=== PATIENT | female | born 1955 | race Caucasian/White ===

== ENCOUNTER 2022-11-05 11:36 | Emergency (ER) | payer OTHER ==
[~2022-11-05] VITALS: Ht 160 cm; Wt 59.0 kg
[2022-11-05] MEDS ORDERED: IPRATROPIUM BROM 0.5 MG/2.5 ML VIAL.NEB (ATROVENT) INH ONE (11:45)
[2022-11-05] MEDS ORDERED: ALBUTEROL SULFATE 0.083% 2.5 MG/3 ML VIAL.NEB INH ONE (11:45)
[2022-11-05] MEDS ORDERED: predniSONE 20 MG TABLET PO ONE (11:45)
[2022-11-05 11:46] VITALS: BP_SYST 124
[2022-11-05] MEDS ORDERED: PRED20TA PO (13:12)
[2022-11-05 13:23] VITALS: BP_SYST 124
== END 2022-11-05 13:22 | disposition home or self-care (01) ==
LOC: SED 11:36
DX: J44.1 Chronic obstructive pulmonary disease with (acute) exacerbation (principal); R06.02 Shortness of breath; R05.9 Cough, unspecified; Z79.899 Other long term (current) drug therapy; Z20.822 Contact with and (suspected) exposure to COVID-19
CPT/HCPCS: 36415; 71045; 94640; 99284; 87804 ×2; 87426; J7512; J7613

== ENCOUNTER 2023-02-16 20:03 | Emergency (ER) | payer OTHER ==
[~2023-02-16] VITALS: Ht 160 cm; Wt 59.4 kg
[~2023-02-16 20:03] MED LIST: PRED20TA PO
[2023-02-16 20:12] VITALS: BP_SYST 137
--- NOTE | 2023-02-16 20:26 | NUR ---
PATIENT PRESENTS WITH ASTHMA ATTACK, OXYGEN NOTED AT 93% ON ROOM AIR, MD SEEN PATIENT IN TRIAGE ROOM, PATIENT PLACED IN ED BED 8
--- NOTE | 2023-02-16 20:27 | NUR ---
pATIENT ARRIVED TO ED 8 FOR C/O SHORTNESS OF BREATH. hAPPENED FOR SOME TIME. pATIENT HAD rt AT BEDSIDE TO GIVE BREATHING TREATMENT. nO C/O PAIN. VITAL SIGNS STABLE. DR. KASPER MSE PATIENT.
[2023-02-16] MEDS ORDERED: methylPREDNISolone SOD SUCC/PF 62.5 MG/ML VIAL IVP ONE (20:30)
[2023-02-16] MEDS ORDERED: IPRATROPIUM/ALBUTEROL SULFATE 3 ML AMPUL.NEB (DUONEB) INH ONE (20:30)
[2023-02-16 21:22] LABS: BASOPHILS % (AUTO) 0.2 % (0.0-2.0); EOSINOPHILS % (AUTO) 0.1 % (0.0-4.0); HEMATOCRIT 42.6 % (36-48); HEMOGLOBIN 14.1 g/dL (12.0-16.0); LYMPHOCYTES # (AUTO) 0.7 K/uL (1.0-5.5); LYMPHOCYTES % (AUTO) 5.3 % (20.5-51.5); MEAN CORPUSCULAR HEMOGLOBIN 31 pg (27-31); MEAN CORPUSCULAR HGB CONC 33 % (32-36); MEAN CORPUSCULAR VOLUME 92 fL (79.0-98.0); MONOCYTES # (AUTO) 0.1 K/uL (0.0-1.0); MONOCYTES % (AUTO) 1.1 % (1.7-9.3); NEUTROPHILS % (AUTO) 93.3 % (40.0-70.0); PLATELET COUNT (AUTO) 282 K/uL (130-430); RED BLOOD CELL COUNT(AUTO) 4.63 MIL/uL (4.2-6.2); RED CELL DISTRIBUTION WIDTH 14.3 % (9.0-15.0); WHITE BLOOD COUNT (AUTO) 12.9 K/uL (4.8-10.8)
[2023-02-16 21:41] LABS: ANION GAP 10 (5-15); CALCIUM 10.1 mg/dL (8.4-11.0); CHLORIDE 104 mmol/L (98-107); CREATININE 1.05 mg/dL (0.55-1.30); GFR AFRICAN AMERICAN 67 mL/min (>90); GLUCOSE 235 mg/dL (70-99); UREA NITROGEN, BLOOD 20 mg/dL (8-21)
[2023-02-16 21:43] LABS: INR 0.9 (0.8-1.2); PROTHROMBIN TIME 9.7 SECS (9.5-12.5)
[2023-02-16 21:47] LABS: ALANINE AMINOTRANSFERASE 42 U/L (12-78); ALBUMIN 4.1 g/dL (3.4-4.8); ASPARTATE AMINOTRANSFERASE 23 U/L (10-37); TOTAL BILIRUBIN 0.2 mg/dL (0.0-1.0)
[2023-02-16] MEDS ORDERED: ALBUTEROL SULFATE 0.083% 2.5 MG/3 ML VIAL.NEB INH ONE (22:00)
[2023-02-16] MEDS ORDERED: PRED20TA PO (22:37)
[2023-02-16 22:49] VITALS: BP_SYST 124
--- NOTE | 2023-02-16 22:54 | NUR ---
Patient given written and verbal discharge instructions and verbalizes understanding. ER MD discussed with patient the results and treatment provided. Patient in stable condition. ID arm band removed. IV catheter removed intact and dressing applied, no active bleeding. Rx of MEDS given. Patient educated on pain management and to follow up with PMD. Pain Scale 0/10. Opportunity for questions provided and answered. Medication side effect fact sheet provided.
== END 2023-02-16 22:49 | disposition home or self-care (01) ==
LOC: SED 20:03
DX: J45.901 Unspecified asthma with (acute) exacerbation (principal); R06.02 Shortness of breath; R05.9 Cough, unspecified; R09.81 Nasal congestion; Z79.899 Other long term (current) drug therapy
CPT/HCPCS: 80053; 83880; 85025; 85379; 85610; 85730; 87040; 84484; 36415; 93005; 71045; 94640; 99285; 96374; 83605; J2930; J7613

== ENCOUNTER 2023-08-04 15:05 | Emergency (ER) | payer OTHER ==
[~2023-08-04] VITALS: Ht 162.6 cm; Wt 59.9 kg
[2023-08-04 15:05] VITALS: BP_SYST 138; PULSE 125; RESP 22; TEMP 97.7; O2SAT 97
[2023-08-04] MEDS ORDERED: FAMOTIDINE PF 20 MG/2 ML VIAL ONE (15:26)
[2023-08-04] MEDS ORDERED: FAMOTIDINE PF 20 MG/2 ML VIAL IVP ONE (15:30)
[2023-08-04] MEDS ORDERED: DIPHENHYDRAMINE INJ 50 MG/ML VIAL IVP ONE (15:30)
[2023-08-04] MEDS ORDERED: IPRATROPIUM/ALBUTEROL SULFATE 3 ML AMPUL.NEB (DUONEB) INH ONE (15:30)
[2023-08-04] MEDS ORDERED: METHYLPREDNISOLONE SOD SUCC 40 MG/ML VIAL IVP ONE (15:30)
[2023-08-04] MEDS ORDERED: FAMOTIDINE 20 MG TABLET PO ONE (16:00)
[2023-08-04] MEDS ORDERED: DIPHENHYDRAMINE HCL 25 MG CAPSULE PO ONE (16:00)
[2023-08-04] MEDS ORDERED: predniSONE 20 MG TABLET PO ONE (16:00)
[2023-08-04] MEDS ORDERED: DIPH-1081 PO ×2 (16:23)
[2023-08-04] MEDS ORDERED: PRED20TA PO (16:23)
[2023-08-04] MEDS ORDERED: DIPH25CA83 PO (16:23)
[2023-08-04] MEDS ORDERED: ALBMDI INH (16:23)
[2023-08-04] MEDS ORDERED: CETI10CA11 PO (16:24)
[2023-08-04 16:39] VITALS: BP_SYST 128; PULSE 116; RESP 22; TEMP 97.7; O2SAT 98
== END 2023-08-04 16:30 | disposition home or self-care (01) ==
LOC: SED 15:05
DX: J45.901 Unspecified asthma with (acute) exacerbation (principal); I10 Essential (primary) hypertension; Z79.899 Other long term (current) drug therapy
CPT/HCPCS: 99284; 94640; Q0163; J7512; J3490; J1030